=== PATIENT | male | born 1975 | race Caucasian/White ===

== ENCOUNTER 2018-07-12 14:52 | Inpatient (IN) ==
[2018-07-12 17:32] LABS: URINE SOURCE CLEAN CATCH
[2018-07-12 17:50] LABS: BILIRUBIN URINE NEGATIVE (NEGATIVE); BLOOD URINE NEGATIVE (NEGATIVE); CLARITY CLEAR (CLEAR); COLOR YELLOW; GLUCOSE URINE NEGATIVE (NEGATIVE); KETONE URINE NEGATIVE (NEGATIVE); LEUKOCYTES URINE NEGATIVE (NEGATIVE); NITRITE URINE NEGATIVE (NEGATIVE); PH URINE 6.5; PROTEIN URINE NEGATIVE (NEGATIVE); SP GRAVITY URINE 1.005; UROBILINOGEN URINE NORMAL
[2018-07-12 18:09] LABS: UR AMPHETAMINES QUAL NONE DETECTED (NONE DETECT); UR BARBITUATES QUAL NONE DETECTED (NONE DETECT); UR BENZODIAZEPIN QUAL NONE DETECTED (NONE DETECT); UR CANNABINOIDS QUAL NONE DETECTED (NONE DETECT); UR COCAINE QUAL NONE DETECTED (NONE DETECT); UR METHADONE QUAL NONE DETECTED (NONE DETECT); UR METHAMPHETAMINE QUAL NONE DETECTED (NONE DETECT); UR OPIATES QUAL NONE DETECTED (NONE DETECT); UR OXYCODONE QUAL NONE DETECTED (NONE DETECT); UR PCP QUAL NONE DETECTED (NONE DETECT); UR PROPOXYPHENE QUAL NONE DETECTED (NONE DETECT); UR TCA QUAL NONE DETECTED (NONE DETECT)
[2018-07-12] MEDS ORDERED: MAALOX PLUS LIQUID PO PRN (18:47)
[2018-07-12] MEDS ORDERED: PHENOBARBITAL IV PRN (18:47)
[2018-07-12] MEDS ORDERED: DULCOLAX PR PRN (18:47)
[2018-07-12] MEDS ORDERED: IMODIUM PO PRN (18:47)
[2018-07-12] MEDS ORDERED: MOTRIN PO PRN (18:47)
[2018-07-12] MEDS ORDERED: BENTYL PO PRN (18:47)
[2018-07-12] MEDS ORDERED: SALINE LOCK IV FLUID XX ONE (18:47)
[2018-07-12] MEDS ORDERED: TYLENOL PO PRN (18:47)
[2018-07-12] MEDS ORDERED: ATARAX PO PRN (18:47)
[2018-07-12] MEDS ORDERED: ZOFRAN IV PRN (18:47)
[2018-07-12] MEDS ORDERED: SENOKOT PO PRN (18:47)
[2018-07-12] MEDS ORDERED: ROBAXIN PO PRN (18:47)
[2018-07-12] MEDS ORDERED: NICODERM PATCH TD PRN (18:47)
[2018-07-12] MEDS ORDERED: D5W 1,000 ML IV PRN (18:47)
[2018-07-12] MEDS ORDERED: TUBERSOL ID ONE (18:47)
[2018-07-12] MEDS ORDERED: DESYREL PO PRN (18:47)
[2018-07-12] MEDS ORDERED: ZOFRAN ODT PO PRN (18:47)
[2018-07-12] MEDS ORDERED: SEROQUEL PO PRN (18:47)
[2018-07-12] MEDS ORDERED: M.V.I.-12 10 ML, FOLIC ACID 1 MG, MAGNESIUM SULFATE 1 GM, THIAMINE 100 MG in NS 1,000 ML IV ONE (19:00)
[2018-07-12] MEDS ORDERED: LIBRIUM PO SCH (19:00)
[2018-07-12 19:12] LABS: HEMOGLOBIN 15.2 g/dL (14.0-18.0); MCH 30.5 PG (27-31); MCHC 35.3 g/dL (33-37); MCV 86.3 FL (81-99); MPV 10.4 FL (7.4-10.4); RBC 4.98 XMIL (4.7-6.1); RDW 14.3 % (11.5-14.5); WBC 6.26 X1000 (4.8-10.8)
[2018-07-12] MEDS: INDERAL PO SCH ×2 (19:18→23:11)
[2018-07-12 19:20] LABS: UR AMPHETAMINES QUAL NONE DETECTED (NONE DETECT); UR BARBITUATES QUAL NONE DETECTED (NONE DETECT); UR BENZODIAZEPIN QUAL NONE DETECTED (NONE DETECT); UR CANNABINOIDS QUAL NONE DETECTED (NONE DETECT); UR COCAINE QUAL NONE DETECTED (NONE DETECT); UR METHADONE QUAL NONE DETECTED (NONE DETECT); UR METHAMPHETAMINE QUAL NONE DETECTED (NONE DETECT); UR OPIATES QUAL NONE DETECTED (NONE DETECT); UR OXYCODONE QUAL NONE DETECTED (NONE DETECT); UR PCP QUAL NONE DETECTED (NONE DETECT); UR PROPOXYPHENE QUAL NONE DETECTED (NONE DETECT); UR TCA QUAL NONE DETECTED (NONE DETECT)
[2018-07-12] MEDS: LIBRIUM PO SCH (19:21)
[2018-07-12 19:28] LABS: INR 0.91; PROTIME 12.7 Seconds (11.0-16.0)
[2018-07-12 19:37] LABS: AGAP 15; ALBUMIN 3.7 g/dL (3.5-5.0); ALKALINE PHOSPHATASE 95 U/L (32-122); AMYLASE 52 U/L (20-200); BUN 5 mg/dL (8-22); CALCIUM 8.3 mg/dL (8.8-10.2); CHLORIDE 98 mmol/L (98-107); COSMO 271; CREATININE 0.7 mg/dL (0.7-1.2); ESTIMATED GFR > 60; GLUCOSE 131 mg/dL (70-104); GOT 124 U/L (10-34); GPT 81 U/L (10-44); LIPASE 52 U/L (13-60); SODIUM 136 mmol/L (136-145); TCO2 23 mmol/L (25-35); TOTAL PROTEIN 7.2 g/dL (6.3-8.3)
--- NOTE | 2018-07-12 22:00 | HISTORY AND PHYSICAL ---
CHIEF COMPLAINT: Nausea and vomiting. HISTORY OF PRESENT ILLNESS: The patient is a 43-year-old male who presented to [facility] secondary to nausea, vomiting, abdominal pain, tremors and myalgias. SOCIAL HISTORY: The patient is and works at [employer]. Lives at home in [place]. PAST MEDICAL HISTORY: History of pancreatitis, polycythemia, chronic anxiety. MEDICATIONS: Propranolol 20 mg twice daily. ALLERGIES: Atarax and BuSpar. REVIEW OF SYSTEMS: CINA score is 11 secondary to nausea, vomiting, abdominal pain, tremors, myalgias, anxiety, agitation and headaches. Denies any fevers or chills. Denies any dysuria, frequency, urgency or hesitancy. Denies polyuria or polydipsia. Denies any skin rashes, weight loss or weight gain. SUBSTANCE ABUSE HISTORY: The patient was in treatment at [place] for 3 days in 2017; [facility] for 5 days; back at [place] [facility] in 2018 for 12 days. He started drinking at age 15, currently drinks 16-18 beers a day. FAMILY HISTORY: Noncontributory. PHYSICAL EXAMINATION: VITAL SIGNS: Reviewed and stable. GENERAL: The patient is awake, alert, currently in no respiratory distress. Very pleasant to talk with. HEENT: Normocephalic. NECK: Supple. CARDIOVASCULAR: Regular rate. No murmurs. CHEST: Clear. ABDOMEN: Soft. EXTREMITIES: Moves all extremities. NEUROLOGIC: No changes. ASSESSMENT: 1. Nausea and vomiting. 2. Abdominal pain. 3. Myalgias. 4. Paresthesias. 5. Paroxysmal sweating. 6. Alcohol abuse and withdrawal. PLAN: We will continue the patient in the hospital, place on high-dose Librium taper. As he gets better, we will attempt to middle school counselor. cc: Greg Hsieh MD
[2018-07-13] MEDS: LIBRIUM PO SCH ×4 (01:17→20:02)
[2018-07-13] MEDS: PROTONIX PO SCH (06:26)
[2018-07-13] MEDS: THERA M PLUS PO SCH ×2 (07:49→08:02)
[2018-07-13] MEDS: VITAMIN B-1 PO SCH ×2 (07:49→08:02)
[2018-07-13] MEDS: FOLIC ACID PO SCH ×2 (07:49→08:01)
[2018-07-13] MEDS: INDERAL PO SCH ×3 (07:49→20:02)
[2018-07-14] MEDS: LIBRIUM PO SCH ×4 (01:25→17:36)
--- NOTE | 2018-07-14 01:41 | PROGRESS NOTE ---
DATE: 07/13/2018 SUBJECTIVE: Patient notes that he feels a lot better. Still having some tremors although very fine. Denies any fevers, chills. Denies cough, congestion. PHYSICAL EXAMINATION: Vital signs: Temperature 98.8 degrees, pulse 89, respiratory 18, BP 116/82. General: Patient is awake, alert, currently in no distress. Very pleasant to talk with. HEENT: Normocephalic. Neck: Supple. Cardiovascular: Regular rate. Chest: Clear. Abdomen: Soft. Extremities: Moves all extremities. Neurologic: No changes. ASSESSMENT: 1. Nausea and vomiting. 2. Abdominal pain. 3. Myalgias. 4. Paresthesias. 5. Paroxysmal sweating. 6. Alcohol abuse, withdrawal and stabilization. PLAN: We will continue high-dose Librium. Continue counseling. Further orders as needed. cc: Greg Hsieh MD
[2018-07-14] MEDS: PROTONIX PO SCH (06:08)
[2018-07-14] MEDS: VITAMIN B-1 PO SCH ×2 (07:57→08:05)
[2018-07-14] MEDS: FOLIC ACID PO SCH ×2 (07:58→08:05)
[2018-07-14] MEDS: INDERAL PO SCH ×3 (07:58→21:46)
[2018-07-14] MEDS: THERA M PLUS PO SCH ×2 (07:58→08:05)
--- NOTE | 2018-07-14 18:08 | PROGRESS NOTE ---
DATE: 07/14/2018 SUBJECTIVE: The patient notes overall he is feeling tremendously better, much less withdrawal symptoms. Denies any fevers or chills. Denies chest pain or palpitations. OBJECTIVE: Vital signs reviewed and stable. The patient is alert, oriented. Temperature 98 degrees, pulse 74, respiratory rate 18, BP 105/86. General: He is pleasant to talk with. HEENT: Normocephalic. Neck supple. CV: Regular rate. No murmurs. Chest clear and nonlabored. Abdomen soft, nondistended. Extremities: Moves all extremities. Neurologic: No focal changes. ASSESSMENT: 1. Nausea and vomiting. 2. Abdominal pain. 3. Myalgias. 4. Paresthesias. 5. Paroxysmal sweating. 6. Opioid abuse, withdrawal and stabilization. 7. Alcohol abuse, withdrawal and stabilization. PLAN: We will continue the patient in the hospital. We will decrease his Librium down to 3 times a day. We will begin naltrexone. Tomorrow if his symptoms tolerate, hopefully he can discharge home. cc: Greg Hsieh MD
[2018-07-15] MEDS: PROTONIX PO SCH (06:08)
[2018-07-15 07:59] VITALS: BP 134/87
[2018-07-15] MEDS ORDERED: LIBRIUM PO SCH (09:00)
[2018-07-15] MEDS: INDERAL PO SCH (09:21)
[2018-07-15] MEDS: VITAMIN B-1 PO SCH (09:21)
[2018-07-15] MEDS: FOLIC ACID PO SCH (09:21)
[2018-07-15] MEDS: THERA M PLUS PO SCH (09:21)
--- NOTE | 2018-07-15 18:58 | DISCHARGE SUMMARY ---
ADMISSION DATE: 07/12/2018 DISCHARGE DATE: 07/15/2018 DISCHARGE DIAGNOSES: 1. Nausea and vomiting. 2. Abdominal pain. 3. Myalgias. 4. Paresthesias. 5. Alcohol abuse, withdrawal, and stabilization. 6. Hepatitis, due to fatty liver from alcoholism. CONSULTATIONS: None. PROCEDURES: None. BRIEF HOSPITAL COURSE: Patient is a 43-year-old male who presented to [facility] secondary to nausea, vomiting, abdominal pain, myalgias, tremors, and paresthesias. He notes that he started drinking again. He was placed on high-dose Librium taper and was able to taper without any incident. On discharge, he is awake and alert. He is in no distress. He is overall pleasant to talk with. DISPOSITION: The patient will be discharged home with medication assisted therapy, i.e. naltrexone. Discussed with him that he should take this for the next several months until he has no longer any desire to drink. He needs outpatient life counseling as well as alcohol counseling. He needs to follow up outpatient with treatment facility of choice. cc: Greg Hsieh MD
== END 2018-07-15 11:05 | disposition home or self-care (01) | DRG 392 ==
LOC: P.DIRADM 14:54 → P.MEDSURG 15:20
PROVIDERS: ADMIT Family Medicine; ATTEND Family Medicine
CPT/HCPCS: 80053; 80104; 80301; 80305; 80307; 80320; 82055; 82150; 83690; 85027; 85610; 86580; A9270; G0431; G0434; G0477; G0480; G6040; J3411; J3475; J7030

== ENCOUNTER 2018-12-13 12:06 | Inpatient (IN) ==
[2018-12-13] MEDS ORDERED: TUBERSOL ID ONE (17:08)
[2018-12-13] MEDS ORDERED: ZOFRAN IM PRN (17:08)
[2018-12-13] MEDS ORDERED: IMODIUM PO PRN ×2 (17:08)
[2018-12-13] MEDS ORDERED: PHENOBARBITAL IV PRN (17:08)
[2018-12-13] MEDS ORDERED: MOTRIN PO PRN (17:08)
[2018-12-13] MEDS ORDERED: ZOFRAN IV PRN (17:08)
[2018-12-13] MEDS ORDERED: D5W 1,000 ML IV PRN (17:08)
[2018-12-13] MEDS ORDERED: NICOTINE GUM BUCCAL PRN (17:08)
[2018-12-13] MEDS ORDERED: DULCOLAX PR PRN (17:08)
[2018-12-13] MEDS ORDERED: ZOFRAN ODT PO PRN (17:08)
[2018-12-13] MEDS ORDERED: TYLENOL PO PRN (17:08)
[2018-12-13] MEDS ORDERED: MAALOX PLUS LIQUID PO PRN (17:08)
[2018-12-13] MEDS ORDERED: DESYREL PO PRN (17:08)
[2018-12-13] MEDS ORDERED: SENOKOT PO PRN (17:08)
[2018-12-13] MEDS ORDERED: NICODERM PATCH TD PRN (17:08)
[2018-12-13] MEDS ORDERED: SEROQUEL PO PRN (17:08)
[2018-12-13 17:48] LABS: URINE SOURCE CLEAN CATCH
[2018-12-13] MEDS ORDERED: ROBAXIN PO PRN (17:50)
[2018-12-13] MEDS ORDERED: ATARAX PO PRN (17:50)
[2018-12-13] MEDS ORDERED: SALINE LOCK IV FLUID XX ONE (17:50)
[2018-12-13] MEDS ORDERED: BENTYL PO PRN (17:50)
[2018-12-13 17:55] LABS: BILIRUBIN URINE NEGATIVE (NEGATIVE); BLOOD URINE NEGATIVE (NEGATIVE); CLARITY CLEAR (CLEAR); COLOR YELLOW; GLUCOSE URINE NEGATIVE (NEGATIVE); KETONE URINE NEGATIVE (NEGATIVE); LEUKOCYTES URINE NEGATIVE (NEGATIVE); NITRITE URINE NEGATIVE (NEGATIVE); PROTEIN URINE NEGATIVE (NEGATIVE); UROBILINOGEN URINE NORMAL
[2018-12-13 18:05] LABS: UR AMPHETAMINES QUAL NONE DETECTED (NONE DETECT); UR BARBITUATES QUAL NONE DETECTED (NONE DETECT); UR BENZODIAZEPIN QUAL NONE DETECTED (NONE DETECT); UR CANNABINOIDS QUAL NONE DETECTED (NONE DETECT); UR COCAINE QUAL NONE DETECTED (NONE DETECT); UR METHADONE QUAL NONE DETECTED (NONE DETECT); UR METHAMPHETAMINE QUAL NONE DETECTED (NONE DETECT); UR OPIATES QUAL NONE DETECTED (NONE DETECT); UR OXYCODONE QUAL NONE DETECTED (NONE DETECT); UR PCP QUAL NONE DETECTED (NONE DETECT); UR PROPOXYPHENE QUAL NONE DETECTED (NONE DETECT); UR TCA QUAL NONE DETECTED (NONE DETECT)
[2018-12-13 18:15] LABS: AMYLASE 41 U/L (20-200); LIPASE 25 U/L (13-60)
[2018-12-13 18:19] LABS: AGAP 14; ALBUMIN 4.3 g/dL (3.5-5.0); ALKALINE PHOSPHATASE 78 U/L (32-122); BUN 4 mg/dL (8-22); CALCIUM 8.6 mg/dL (8.8-10.2); CHLORIDE 96 mmol/L (98-107); COSMO 265; CREATININE 0.7 mg/dL (0.7-1.2); ESTIMATED GFR > 60; GLUCOSE 94 mg/dL (70-104); GOT 88 U/L (10-34); GPT 72 U/L (10-44); POTASSIUM 4.7 mmol/L (3.5-5.1); SODIUM 134 mmol/L (136-145); TCO2 24 mmol/L (25-35); TOTAL PROTEIN 7.8 g/dL (6.3-8.3)
[2018-12-13 18:34] LABS: INR 0.91; PROTIME 12.7 Seconds (11.0-16.0)
[2018-12-13] MEDS: LIBRIUM PO SCH (18:38)
[2018-12-13] MEDS ORDERED: M.V.I.-12 10 ML, FOLIC ACID 1 MG, MAGNESIUM SULFATE 1 GM, THIAMINE 100 MG in NS 1,000 ML IV ONE (20:00)
[2018-12-14] MEDS: LIBRIUM PO SCH ×4 (00:16→17:37)
--- NOTE | 2018-12-14 01:48 | HISTORY AND PHYSICAL ---
CHIEF COMPLAINT: Nausea, vomiting. HISTORY OF PRESENT ILLNESS: The patient is a 43-year-old male who presented to [facility] secondary to nausea, vomiting, abdominal pain, myalgias. Notes that he had been sober for several months until he stopped naltrexone. Unfortunately, 1 or 2 weeks after stopping naltrexone he started drinking again. He has been drinking heavily for the last several weeks. SOCIAL HISTORY: Patient is . Lives at home. Works at [employer]. Lives in [place]. PAST MEDICAL HISTORY: History of pancreatitis secondary to alcoholism, history of polycythemia, chronic anxiety, depression. MEDICATIONS: Propranolol. ALLERGIES: Atarax and BuSpar. REVIEW OF SYSTEMS: CIWA score is elevated at 29 secondary to moderate tremors, intermittent dry heaves, frequent sweating with beads of sweat on his brow. He is jittery, unable sit still. He is fidgeting. He has to be redirected to answer questions. He is easily startled. Notes he is having itching, pins and needles. Denies any photophobia. Does have phonophobia. Denies chest pain, palpitations. Denies any fevers or chills. Denies dysuria, urinary frequency, urgency, hesitancy, polyuria or polydipsia. Denies skin rashes, weight loss or weight gain. Denies chest pain, palpitations. SUBSTANCE ABUSE HISTORY: Patient was in treatment in 2017 in [place] for 3 days, left AMA. He was there in 2016 for 21 days. He did remain sober from 2013 to 2015. He was in [place] again in January of 2018. He was in [facility] in February of 2018 again and June of 2018. He remained sober for 4 months this last time while he was on naltrexone. Unfortunately, he stopped and started redrinking. The patient notes that alcohol has caused financial and work problems. Notes that he starts a new job in a few days. Started drinking at 15, currently he is back to 15 and 16 beers a day. Has so for the last 3 or 4 weeks. Started marijuana at 18, currently smokes. Has tried it a couple of times. Started depressants in his 30s, currently only takes during treatment for alcohol. Started cocaine in his 20s, has not used in years. States he loved it but was too expensive. Started pain medications at 38. States he has been sober since 2014 from pain medicines. Started smoking at 17, currently uses a can of snuff a day. FAMILY HISTORY: Noncontributory. PHYSICAL EXAMINATION: VITAL SIGNS: Reviewed and stable. GENERAL: Patient is awake, alert, oriented. He is in no current respiratory distress. HEENT: Normocephalic. NECK: Supple. CARDIOVASCULAR: Regular rate. CHEST: Clear. ABDOMEN: Soft, nondistended. EXTREMITIES: Moves all extremities. NEUROLOGIC: He is awake, alert, oriented. He is fidgety, anxious on exam. He is having tremors. ASSESSMENT: 1. Nausea, vomiting. 2. Abdominal pain. 3. Tremors. 4. Myalgias. 5. Paresthesias. 6. Paroxysmal sweating. 7. Alcohol abuse, withdrawal and stabilization. PLAN: We are going to admit the patient to the hospital, place him on high-dose Librium taper, begin counseling. Again discussed with patient the importance of use of naltrexone, suggested that he stay on it for a minimum of 6 months, preferably a year. cc: Greg Hsieh MD
[2018-12-14] MEDS: PROTONIX PO SCH (06:02)
[2018-12-14] MEDS: FOLIC ACID PO SCH (09:53)
[2018-12-14] MEDS: VITAMIN B-1 PO SCH (09:53)
[2018-12-14] MEDS: THERA M PLUS PO SCH (09:53)
--- NOTE | 2018-12-14 17:52 | PROGRESS NOTE ---
DATE: 12/14/2018 SUBJECTIVE: Patient notes overall that he is feeling better. Denies any fevers or chills. OBJECTIVE: Vital Signs: Reviewed. He is awake and alert. He is in no current respiratory distress. Temperature 97.5 degrees, pulse 75, respiratory rate 18, BP 110/68. General: Patient is awake, alert, very pleasant. Notes that his withdrawal symptoms have improved. Denies any fevers. HEENT: Normocephalic. Neck: Supple. Cardiovascular: Regular rate. Chest: Clear. Abdomen: Soft. Extremities: Moves all extremities. Neurologic: No focal changes. His tremors have improved. ASSESSMENT: 1. Nausea and vomiting. 2. Abdominal pain. 3. Myalgias. 4. Tremors. 5. Paresthesias. 6. Paroxysmal sweating. 7. Alcohol abuse, withdrawal, and stabilization. PLAN: We will continue the patient in the hospital, continue Librium taper. Again, discussed with him medication-assisted therapy for a longer period of time and will follow. cc: Greg Hsieh MD
[2018-12-15] MEDS: LIBRIUM PO SCH ×2 (00:21→06:24)
[2018-12-15] MEDS: PROTONIX PO SCH (06:24)
[2018-12-15 07:33] VITALS: BP 113/79
[2018-12-15] MEDS: FOLIC ACID PO SCH (08:21)
[2018-12-15] MEDS: VITAMIN B-1 PO SCH (08:21)
[2018-12-15] MEDS: THERA M PLUS PO SCH (08:21)
[2018-12-15] MEDS ORDERED: VIVITROL IM ONE (10:56)
--- NOTE | 2018-12-15 20:12 | DISCHARGE SUMMARY ---
ADMISSION DATE: 12/13/2018 DISCHARGE DATE: 12/15/2018 DISCHARGE DIAGNOSES: 1. Nausea, vomiting. 2. Abdominal pain. 3. Tremors. 4. Myalgias. 5. Paraesthesias. 6. Alcohol abuse, withdrawal, and stabilization. CONSULTATIONS: None. PROCEDURES: None. BRIEF HOSPITAL COURSE: The patient is a 43-year-old male who presented to [facility] secondary to nausea, vomiting, abdominal pain, myalgias, and paresthesias. The patient was treated in the usual fashion, placed on Librium taper, he tolerated very well. On discharge, he is awake, alert. He has actually been able to skip a dose of Librium and continued to improve. DISPOSITION: The patient will be discharged home. We are going to attempt Vivitrol injections monthly. Hopefully, his insurance will pay for this. The patient actually did very well while he was taking naltrexone, but felt as though he was doing better. So, therefore he stopped naltrexone and almost immediately started drinking again. TIME SPENT: Greater than 30 minutes was spent in total care. cc: Greg Hsieh MD
[2018-12-15] MEDS ORDERED: LIBRIUM PO SCH (21:00)
[2018-12-16] MEDS ORDERED: INDERAL PO SCH (09:00)
== END 2018-12-15 13:37 | disposition home or self-care (01) | DRG 392 ==
LOC: P.DIRADM 16:05 → P.MEDSURG 16:14
PROVIDERS: ADMIT Family Medicine; ATTEND Family Medicine

== ENCOUNTER 2019-04-12 09:00 | Inpatient (IN) ==
[2019-04-12] MEDS ORDERED: FLU VACCINE IM ONE (12:03)
[2019-04-12] MEDS ORDERED: PNEUMOVAX 23 IM ONE (12:03)
[2019-04-12] MEDS ORDERED: SEROQUEL PO PRN (12:42)
[2019-04-12] MEDS ORDERED: D5W 1,000 ML IV PRN (12:42)
[2019-04-12] MEDS ORDERED: BENTYL PO PRN (12:42)
[2019-04-12] MEDS ORDERED: SALINE LOCK IV FLUID XX ONE (12:42)
[2019-04-12] MEDS ORDERED: MOTRIN PO PRN (12:42)
[2019-04-12] MEDS ORDERED: DESYREL PO PRN (12:42)
[2019-04-12] MEDS ORDERED: MAALOX PLUS LIQUID PO PRN (12:42)
[2019-04-12] MEDS ORDERED: SENOKOT PO PRN (12:42)
[2019-04-12] MEDS ORDERED: ATARAX PO PRN (12:42)
[2019-04-12] MEDS ORDERED: TYLENOL PO PRN (12:42)
[2019-04-12] MEDS ORDERED: IMODIUM PO PRN (12:42)
[2019-04-12] MEDS ORDERED: TUBERSOL ID ONE (12:42)
[2019-04-12] MEDS ORDERED: ZOFRAN IV PRN (12:42)
[2019-04-12] MEDS ORDERED: PHENOBARBITAL IV PRN (12:42)
[2019-04-12] MEDS ORDERED: NICODERM PATCH TD PRN (12:42)
[2019-04-12] MEDS ORDERED: ROBAXIN PO PRN (12:42)
[2019-04-12] MEDS ORDERED: DULCOLAX PR PRN (12:42)
[2019-04-12] MEDS ORDERED: ZOFRAN ODT PO PRN (12:42)
[2019-04-12] MEDS ORDERED: M.V.I.-12 10 ML, FOLIC ACID 1 MG, MAGNESIUM SULFATE 1 GM, THIAMINE 100 MG in NS 1,000 ML IV ONE (13:30)
[2019-04-12] MEDS: LIBRIUM PO SCH ×2 (13:30→19:01)
[2019-04-12 13:45] LABS: HEMATOCRIT 46.7 % (42.0-52.0); MCH 30.9 PG (27-31); MCHC 34.3 g/dL (33-37); MCV 90.2 FL (81-99); MPV 10.9 FL (7.4-10.4); RBC 5.18 XMIL (4.7-6.1); WBC 6.81 X1000 (4.8-10.8)
[2019-04-12 14:01] LABS: AMYLASE 46 U/L (20-200); LIPASE 24 U/L (13-60)
[2019-04-12 14:03] LABS: AGAP 15; ALBUMIN 4.2 g/dL (3.5-5.0); ALKALINE PHOSPHATASE 84 U/L (32-122); BUN 6 mg/dL (8-22); CALCIUM 8.9 mg/dL (8.8-10.2); CHLORIDE 100 mmol/L (98-107); COSMO 277; CREATININE 0.7 mg/dL (0.7-1.2); ESTIMATED GFR > 60; GLUCOSE 132 mg/dL (70-104); GOT 122 U/L (10-34); GPT 131 U/L (10-44); POTASSIUM 4.3 mmol/L (3.5-5.1); SODIUM 139 mmol/L (136-145); TCO2 24 mmol/L (25-35); TOTAL PROTEIN 7.4 g/dL (6.3-8.3)
[2019-04-12 14:07] LABS: INR 0.97; PROTIME 13.4 Seconds (11.0-16.0)
[2019-04-12 19:19] LABS: URINE SOURCE CLEAN CATCH
[2019-04-12 19:21] LABS: BILIRUBIN URINE NEGATIVE (NEGATIVE); BLOOD URINE NEGATIVE (NEGATIVE); COLOR YELLOW; GLUCOSE URINE NEGATIVE (NEGATIVE); KETONE URINE NEGATIVE (NEGATIVE); LEUKOCYTES URINE NEGATIVE (NEGATIVE); NITRITE URINE NEGATIVE (NEGATIVE); PROTEIN URINE NEGATIVE (NEGATIVE); SP GRAVITY URINE 1.021; TURBIDITY URINE CLEAR (CLEAR); UROBILINOGEN URINE NORMAL (NORMAL)
[2019-04-12 19:33] LABS: UR AMPHETAMINES QUAL NONE DETECTED (NONE DETECT); UR BARBITUATES QUAL NONE DETECTED (NONE DETECT); UR EPITHELIAL CELLS <10 /HPF (<10); URINE BACTERIA NEGATIVE /HPF
[2019-04-12 19:34] LABS: UR BENZODIAZEPIN QUAL PRESUMPTIVE POSITIVE (NONE DETECT); UR CANNABINOIDS QUAL NONE DETECTED (NONE DETECT); UR COCAINE QUAL NONE DETECTED (NONE DETECT); UR METHADONE QUAL NONE DETECTED (NONE DETECT); UR METHAMPHETAMINE QUAL NONE DETECTED (NONE DETECT); UR OPIATES QUAL NONE DETECTED (NONE DETECT); UR OXYCODONE QUAL NONE DETECTED (NONE DETECT); UR PCP QUAL NONE DETECTED (NONE DETECT); UR PROPOXYPHENE QUAL NONE DETECTED (NONE DETECT); UR TCA QUAL NONE DETECTED (NONE DETECT)
[2019-04-13] MEDS: LIBRIUM PO SCH ×4 (01:15→18:31)
[2019-04-13] MEDS: PROTONIX PO SCH (06:21)
[2019-04-13] MEDS: FOLIC ACID PO SCH (08:55)
[2019-04-13] MEDS: THERA M PLUS PO SCH (08:55)
[2019-04-13] MEDS: VITAMIN B-1 PO SCH (08:55)
--- NOTE | 2019-04-13 14:47 | PROGRESS NOTE ---
DATE: 04/13/2019 SUBJECTIVE: Patient with no new complaints. States that overall he is feeling a little bit better. Denies any fevers or chills. PHYSICAL EXAMINATION: Vital Signs: Reviewed. Temperature 97.8 degrees, pulse 73, respiratory rate 18, blood pressure 135/92. HEENT: Normocephalic. Neck: Supple. Cardiovascular: Regular rate. Chest: Clear, nonlabored. Abdomen: Soft, nondistended. Extremities: Moves all extremities. Neurologic: No changes. His tremors have improved. ASSESSMENT: 1. Nausea, vomiting, abdominal pain. 2. Myalgias. 3. Tremors. 4. Paresthesias. 5. Paroxysmal sweating. 6. Alcohol abuse withdrawal and stabilization. CONSULTATIONS: None. PROCEDURES: None. PLAN: We will continue patient in the hospital. Continue high-dose Librium taper and symptomatic medications as needed. cc: Greg Hsieh MD
--- NOTE | 2019-04-13 15:58 | HISTORY AND PHYSICAL ---
CHIEF COMPLAINT: Nausea, vomiting, tremors. HISTORY OF PRESENT ILLNESS: The patient is a 44-year-old male who unfortunately has fallen back into drinking heavily. He has been having nausea, abdominal pain, myalgias, paresthesias, frequent sweating, unable to sit still. He has been restless. H has also been having tremors. SOCIAL HISTORY: The patient Is . He works at [employer]. Lives in [place]. PAST MEDICAL HISTORY: History of pancreatitis and polycythemia. History of chronic anxiety and depression, history of seizures 4 months ago that may or may not have been alcohol-related. MEDICATIONS: None. ALLERGIES: Atarax and BuSpar. REVIEW OF SYSTEMS: CIWA score is 33 secondary to moderate tremors, intermittent nausea with frequent dry heaves, moderately fidgety. He is restless, unable sit still. He is not sleeping. He has a decreased oral intake. He is anxious, guarded. Has sensitivity to light. He hears noises and sounds that startle him. He is having some tremors with his arms extended. Denies any fevers, chills, cough, congestion. Denies headaches, blurry vision, change in vision. Denies any focalized numbness, tingling, weakness. Denies diarrhea, constipation, melena, hematochezia. Denies skin rashes, weight loss, weight gain. Denies swelling, PND, orthopnea, weight loss or weight gain. SUBSTANCE ABUSE HISTORY: The patient was treated at [facility] in January 2018, stayed there 12 days, relapsed immediately. Was in [facility] in February 2018, remained sober for a months in June, and [facility], sober for 4 months and then again in November, remained sober at this time until he actually ran out of his naltrexone prescription and could not get this refilled. Notes that alcohol has caused social, health and financial problems. Started drinking at 15, currently is back to 1/5 of a gallon of vodka daily for the past month. Started marijuana at 18, currently only used a couple times. Only used depressants when he was trying to stop drinking. He had tried cocaine once in his 20s. States that he enjoyed it but it was too expensive, so he stopped it at 22. Started opiates at 38, took for a few months. FAMILY HISTORY: Noncontributory. PHYSICAL EXAMINATION: VITAL SIGNS: Reviewed and stable. GENERAL: Patient is awake and alert. He is in no current respiratory distress. He is pleasant. He is having tremors with his arms extended. HEENT: Normocephalic. NECK: Supple. CARDIOVASCULAR: Regular rate. CHEST: Clear. ABDOMEN: Soft, nondistended. EXTREMITIES: Moves all extremities. No edema. NEUROLOGIC: No focal changes other than tremors. ASSESSMENT: 1. Nausea, vomiting. 2. Abdominal pain. 3. Myalgias. 4. Tremors. 5. Paresthesias. 6. Paroxysmal sweating. 7. Alcohol abuse withdrawal and stabilization. PLAN: We will again begin counseling, place patient on high-dose Librium taper. Again discussed with him the use of naltrexone for a year. cc: Greg Hsieh MD MTDD
[2019-04-14] MEDS: LIBRIUM PO SCH ×3 (01:31→12:51)
[2019-04-14] MEDS: PROTONIX PO SCH ×2 (05:58→06:10)
[2019-04-14] MEDS: VITAMIN B-1 PO SCH (09:44)
[2019-04-14] MEDS: FOLIC ACID PO SCH (09:44)
[2019-04-14] MEDS: THERA M PLUS PO SCH (09:44)
[2019-04-14] MEDS ORDERED: VIVITROL IM ONE (10:38)
[2019-04-14 11:57] VITALS: BP 122/89
[2019-04-14] MEDS ORDERED: LIBRIUM PO SCH (13:00)
--- NOTE | 2019-04-14 16:03 | DISCHARGE SUMMARY ---
ADMISSION DATE: 04/12/2019 DISCHARGE DATE: 04/14/2019 DISCHARGE DIAGNOSES: 1. Nausea vomiting. 2. Abdominal pain. 3. Myalgias. 4. Paresthesias. 5. Paroxysmal sweating. 6. Alcohol abuse withdrawal and stabilization. CONSULTATIONS: None. PROCEDURES: None. BRIEF HOSPITAL COURSE: The patient was admitted to the hospital, treated in the usual fashion, placed on Librium. He tolerated very well. We weaned his Librium as tolerated. On discharge he is awake, alert. He is in no distress. DISPOSITION: Patient will be discharged home. Discussed with him that he needs to follow up as outpatient with primary care. He needs outpatient life counseling as well as drug counseling. He needs to continue naltrexone preferably for a year while he is undergoing lifestyle changes. cc: Greg Hsieh MD
== END 2019-04-14 13:01 | disposition home or self-care (01) | DRG 392 ==
LOC: P.MEDSURG 10:42
PROVIDERS: ADMIT Family Medicine; ATTEND Family Medicine